=== PATIENT | male | born 1960 | race Caucasian/White ===

== ENCOUNTER 2022-11-28 08:21 | Day surgery (SDC) | payer OTHER ==
[2022-11-28] VITALS (15 sets, daily range): BP systolic 113–135; BP diastolic 66–86
[~2022-11-28] VITALS: Ht 182.9 cm; Wt 96.6 kg
[~2022-11-28 08:21] MED LIST: CELE100 PO; Crestor20 MG PO; MULVITA PO; TADA10TA
--- NOTE | 2022-11-28 09:46 | NUR ---
11/28/22 0946 Benja Lin HISTORY, CHART, MEDICATIONS AND ALLERGIES REVIEWED BEFORE START OF PROCEDURE. PATIENT CONFIRMS NPO STATUS AND AGREES WITH SCHEDULED PROCEDURE. 3-LEAD EKG REVIEWED WITH PHYSICIAN PRIOR TO START OF PROCEDURE. MONITOR INTACT WITH CONTINUOUS PULSE OXIMETRY,CAPNOGRAPHY, 3-LEAD EKG, INTERMITTENT BP. SUPPLEMENTAL O2 TO BE TITRATED THROUGHOUT PROCEDURE TO MAINTAIN O2 SATURATION ABOVE 90%. PATIENT DETERMINED TO BE ASA APPROPRIATE FOR PROPOFOL SEDATION PRIOR TO START OF PROCEDURE BY
--- NOTE | 2022-11-28 10:43 | NUR ---
DISCHARGE NOTE PT A&OX4, VSS, BREATHING RA, DRESSED INDEPENDENTLY WITH RN IN ROOM. PT TOLERATING PO FLUIDS. Discharge instructions reviewed with patient. Patient verbalizes understanding. Copy given to patient to take home. Discharged via wheelchair to private car for ride home.ABDOMEN SOFT AND NON-TENDER.
== END 2022-11-28 10:48 | disposition home or self-care (01) ==
LOC: ORSCMMR 08:21 → ORD 09:30 → ORSCMMR 10:48
PROVIDERS: Internal Medicine Gastroenterology
PROC: 0DBN8ZX Excision of Sigmoid Colon, Via Natural or Artificial Opening Endoscopic, Diagnostic (ICD-10-PCS; principal; 2022-11-28 09:30)
PROC: 0DBM8ZX Excision of Descending Colon, Via Natural or Artificial Opening Endoscopic, Diagnostic (ICD-10-PCS; principal; 2022-11-28 09:30)
PROC: 0DBK8ZX Excision of Ascending Colon, Via Natural or Artificial Opening Endoscopic, Diagnostic (ICD-10-PCS; principal; 2022-11-28 09:30)
DX: Z12.11 Encounter for screening for malignant neoplasm of colon (principal); Z86.010 Personal history of colon polyps; Z80.0 Family history of malignant neoplasm of digestive organs; D12.2 Benign neoplasm of ascending colon; K63.5 Polyp of colon; K57.30 Diverticulosis of large intestine without perforation or abscess without bleeding; N40.0 Benign prostatic hyperplasia without lower urinary tract symptoms; E78.00 Pure hypercholesterolemia, unspecified; Z79.899 Other long term (current) drug therapy
CPT/HCPCS: 88305; J2250; J2704; J7120

== ENCOUNTER 2023-08-14 06:08 | Day surgery (SDC) | payer OTHER ==
[~2023-08-14] VITALS: Ht 182.9 cm; Wt 99.0 kg
[2023-08-14] VITALS (14 sets, daily range): BP systolic 124–162; BP diastolic 71–93
[~2023-08-14 06:08] MED LIST changes: +LOSA25 PO; -TADA10TA; +TADA10TA PO
--- NOTE | 2023-08-14 11:00 | NUR ---
ARRIVAL TO SURGICAL UNIT DROWSY BUT APPROP. PLEASANT. ASSESSMENT CHARTED. DENIES N/V SO SNACKS & FLUIDS GIVEN. IVF INFUSING.
--- NOTE | 2023-08-14 17:59 | NUR ---
SHIFT SUMMARY PT WAS ABLE TO WORK w/ THERAPY, AMBULATED IN HALLWAY, UP IN CHAIR FOR DINNER, & PAIN WELL CONTROLLED. DOES C/O FEELING DROWSY & HAS NAPPED ON & OFF. ANDRAE CARPIO.
[2023-08-15 00:42] VITALS: BP 122/71
[2023-08-15 04:28] VITALS: BP 123/67
[2023-08-15 04:52] LABS: BASOPHILS ABSOLUTE AUTO 0.03 K/mm3 (0.00-0.23); BASOPHILS PERCENT AUTO 0 % (0-2); EOSINOPHILS PERCENT AUTO 2 % (0-6); Hemoglobin 12.6 g/dL (13.5-17.5); IMMATURE GRAN PERCENT AUTO 1 % (0-1); LYMPHOCYTES ABSOLUTE AUTO 1.88 K/mm3 (0.84-5.20); LYMPHOCYTES PERCENT AUTO 9 % (21-46); MONOCYTES ABSOLUTE AUTO 2.93 K/mm3 (0.16-1.47); MONOCYTES PERCENT AUTO 15 % (4-13); Mean Corpuscular HGB 31.6 pg (26.0-34.0); Mean Corpuscular Volume 90 fL (80-100); Mean Platelet Volume 10.4 fL (9.1-12.4); NEUTROPHILS ABSOLUTE AUTO 14.56 K/mm3 (1.96-9.15); NEUTROPHILS PERCENT AUTO 73 % (41-73); Platelet Count 194 K/mm3 (150-400); RDW Coefficient Variation 13.2 % (11.7-14.2); RDW Standard Deviation 43.6 fL (35.1-46.3); Red Blood Cell Count 3.99 M/mm3 (4.30-5.90)
[2023-08-15 05:53] LABS: Magnesium, Blood 1.8 mg/dL (1.6-2.4)
[2023-08-15 05:54] LABS: Bun/Creatinine Ratio 20.2 (12.0-20.0); Calcium, Blood 8.3 mg/dL (8.5-10.1); Creatinine, Blood 0.99 mg/dL (0.60-1.20); Potassium, Blood 4.5 mmol/L (3.5-5.5)
--- NOTE | 2023-08-15 06:39 | NUR ---
POD 1 S/P L FRANCISCO. PT VSS T/O NIGHT. INCISION CDI. PEDAL PULSES AND CAP REFILL WNL, PT DENIED N/T. PAIN MGD W/1 OXYCODONE AND SCHEDULED PAIN MEDS W/REP RELIEF. ABEBE DRAINING YELLOW URINE, STAT LOCK IN PLACE. PT UP OOB W/FWW+SBA, KEON WELL. PLAN TO MOBILIZE W/PT AND DC HOME WHEN CLEARED.
[2023-08-15 07:21] VITALS: BP 123/74
[2023-08-15] MEDS ORDERED: ACET500 PO (09:16)
[2023-08-15] MEDS ORDERED: ASPI81CH PO (09:17)
[2023-08-15] MEDS ORDERED: OXYC5 PO (09:17)
--- NOTE | 2023-08-15 10:45 | NUR ---
WENT TO BRAZING MACHINE OPERATOR HELPER RX & THEN WILL RETURN TO DISCUSS DC INSTRUCTIONS.
--- NOTE | 2023-08-15 12:01 | NUR ---
DISCHARGE PT HAS CLEARED THERAPY. PAIN WELL CONTROLLED. EATING, DRINKING WELL. ABEBE EDUCATION DISCUSSED MULTIPLE TIMES, INCLUDING NOT HAVING STAT LOCK OR ABEBE ON SIDE OF SURGERY. w/ PLAN TO DC ABEBE AT HOME & HAS PLANS IF UNABLE TO VOID. POLAR PACK SENT w/ PT. ESCORTED OUT VIA W/C.
== END 2023-08-15 12:01 | disposition home or self-care (01) ==
LOC: ORSCMMR 06:08 → ORD 07:30 → SURS 10:32 → ORD 10:45 → ORSCMMR 08-15 12:01
PROVIDERS: Orthopaedic Surgery
PROC: 0SRB0JA Replacement of Left Hip Joint with Synthetic Substitute, Uncemented, Open Approach (ICD-10-PCS; principal; 2023-08-14 07:30)
DX: M16.12 Unilateral primary osteoarthritis, left hip (principal); E78.5 Hyperlipidemia, unspecified; I10 Essential (primary) hypertension; Z79.899 Other long term (current) drug therapy
CPT/HCPCS: 36415; 72170; 80048; 83735; 85025; 97110; 97116; 97161; 97530; A9270; C1713; C1776; J0171; J0690; J0735; J1100; J1170; J1885; J2250; J2405; J2704; J2795; J3010; J7120

== ENCOUNTER 2024-10-01 06:01 | Inpatient (IN) | payer OTHER ==
[~2024-10-01] VITALS: Ht 180.3 cm; Wt 108.5 kg
[2024-10-01] VITALS (20 sets, daily range): BP systolic 114–150; BP diastolic 75–99
[~2024-10-01 06:01] MED LIST changes: +ACET325 PO; +ASPI81CH PO; +BENADRYL25 MG PO; +IBUP200 PO; +MAGNESIUM OXID500 MG PO; +MULTI-VITAMIN1 EAC2 PO; +OXYC5 PO; +Vitamin C100 M1 PO; +Vitamin D1000 UNI1 PO
[2024-10-01] MEDS ORDERED: CeFAZolin Sodium 2,000 MG in NS 100 ML IV SCH (06:20)
[2024-10-01] MEDS ORDERED: Lactated Ringer's 1,000 ML IV SCH ×2 (06:20→11:50)
[2024-10-01] MEDS ORDERED: propofoL 20 ML IV ONE (06:56)
[2024-10-01] MEDS ORDERED: FentaNYL Citrate 50 MCG/ML 2 ML Injection ONE ×3 (06:57→12:45)
[2024-10-01] MEDS ORDERED: Rocuronium Bromide 10 MG/ML 5ML Injection IV ONE ×2 (06:57→09:08)
[2024-10-01] MEDS ORDERED: Bupivacaine 0.5% HCl 5 MG/ML 30MLVIAL ONE (06:59)
--- NOTE | 2024-10-01 07:01 | NUR ---
History, Chart, Medications and Allergies reviewed before start of procedure. Patient confirms NPO status and agrees with scheduled surgery.
[2024-10-01] MEDS ORDERED: CeFAZolin Sodium 2,000 MG VIAL ONE (07:05)
--- NOTE | 2024-10-01 07:20 | NUR ---
JASON DIAZ NOTIFIED OF PATIENT'S LAST DOSE OF CIALIS BEING 09/30/24 AT 1730. JASON DIAZ STATED SHE WOULD INFORM DR WOODALL PRE-OP. NO NEW ORDERS.
[2024-10-01] MEDS ORDERED: Lidocaine HCl 4% 5 ML SDA ONE (07:25)
[2024-10-01] MEDS ORDERED: Dexamethasone Sod Phos 10 MG/ML 1ML VIAL ONE (07:33)
[2024-10-01] MEDS ORDERED: Sugammadex Sodium 200 MG/2ML SDV (100 MG/ML) ONE ×2 (07:33)
[2024-10-01] MEDS ORDERED: Ondansetron HCl 2 MG / ML 2ML Vial ONE (07:33)
[2024-10-01] MEDS ORDERED: Ketorolac Tromethamine 30mg Vial ONE (07:33)
--- NOTE | 2024-10-01 09:15 | NUR ---
10/01/24 0915 Gisselle,Mame ERYTHEMA NOTED ON PATIENT'S LOWER ABDOMEN WHERE PATIENT WAS SHAVED PRIOR TO ARRIVAL TO OR.
[2024-10-01] MEDS ORDERED: FLU VACC TS2024-25(6MOS UP)/PF 45 MCG/0.5 ML SYRINGE IM ONE (11:50)
[2024-10-01] MEDS ORDERED: OxyCODONE 5 mg/Acetamin 325 mg TABLET PO PRN (11:50)
[2024-10-01] MEDS ORDERED: HYDROcodone 7.5-APAP 325 TAB PO PRN (11:50)
[2024-10-01] MEDS ORDERED: Ondansetron HCl 2 MG / ML 2ML Vial IV PRN (11:55)
[2024-10-01] MEDS ORDERED: FentaNYL Citrate 50 MCG/ML 2 ML Injection IV PRN (12:45)
--- NOTE | 2024-10-01 14:30 | NUR ---
BLADDER SCAN PERFORMED, 71ML IN BLADDER. PER DR WOODALL, PLACE ABEBE CATH IF PATIENT UNABLE TO VOID POST SURGERY. HX BPH. STUDENT NURSE MAXIMILIANO WITH INSTRUCTOR VIJAYA TO ASSIST TO PLACE 14 FR. ABEBE CATH.
--- NOTE | 2024-10-01 15:06 | NUR ---
Patient up to Ambulate with standby assist. Gait steady. Dressing to procedure site X3 to abdomen clean, dry, intact with no visible drainage, swelling, erythema or bruising noted. Abominal binder in place. Patient States Post-Procedure ride home has been arranged with Rona. Discharged via wheelchair to private car for ride home. Instructed when to remove sanford cath at home per Dr. Johnson's orders.
== END 2024-10-01 15:04 | disposition home or self-care (01) | DRG 355 ==
LOC: ORSCMMR 06:01 → ORD 07:30 → ORSCMMR 07:30 → ORD 08:15 → ORSCMMR 11:48 → SURS 11:48
PROVIDERS: ADMIT Surgery
PROC: 0WUF4JZ Supplement Abdominal Wall with Synthetic Substitute, Percutaneous Endoscopic Approach (ICD-10-PCS; principal; 2024-10-01 07:30)
PROC: 8E0W4CZ Robotic Assisted Procedure of Trunk Region, Percutaneous Endoscopic Approach (ICD-10-PCS; 2024-10-01 07:30)
DX: K43.0 Incisional hernia with obstruction, without gangrene (principal)
CPT/HCPCS: A9270; C1781; J0690; J1100; J1885; J2003; J2405; J2704; J3010; J7120

== ENCOUNTER 2024-11-22 09:16 | Inpatient (IN) | payer OTHER ==
[2024-11-22] VITALS (14 sets, daily range): BP systolic 120–156; BP diastolic 74–97
[~2024-11-22] VITALS: Ht 182.9 cm; Wt 102.1 kg
[~2024-11-22 09:16] MED LIST changes: -Crestor20 MG PO; +Crestor40 MG PO
[2024-11-22 10:59] LABS: BASOPHILS PERCENT AUTO 1 % (0-2); EOSINOPHILS ABSOLUTE AUTO 0.11 K/mm3 (0.00-0.68); EOSINOPHILS PERCENT AUTO 1 % (0-6); Hematocrit 40.7 % (37.0-53.0); Hemoglobin 13.9 g/dL (13.5-17.5); IMMATURE GRAN ABSOLUTE AUTO 0.09 K/mm3 (0.00-0.10); IMMATURE GRAN PERCENT AUTO 1 % (0-1); LYMPHOCYTES ABSOLUTE AUTO 2.15 K/mm3 (0.84-5.20); LYMPHOCYTES PERCENT AUTO 15 % (21-46); MONOCYTES ABSOLUTE AUTO 2.08 K/mm3 (0.16-1.47); MONOCYTES PERCENT AUTO 15 % (4-13); Mean Corpuscular HGB 30.1 pg (26.0-34.0); Mean Corpuscular HGB Conc 34.2 g/dL (31.5-36.5); Mean Corpuscular Volume 88 fL (80-100); Mean Platelet Volume 10.1 fL (9.1-12.4); NEUTROPHILS ABSOLUTE AUTO 9.42 K/mm3 (1.96-9.15); NEUTROPHILS PERCENT AUTO 68 % (41-73); Platelet Count 227 K/mm3 (150-400); RDW Coefficient Variation 13.2 % (11.7-14.2); RDW Standard Deviation 42.9 fL (35.1-46.3); Red Blood Cell Count 4.62 M/mm3 (4.30-5.90); White Blood Cell Count 13.95 K/mm3 (4.00-11.30)
[2024-11-22 11:27] LABS: Albumin, Blood 3.4 g/dL (3.4-5.0); Albumin/Globulin Ratio 0.8 (0.8-1.8); Bilirubin, Total 1.7 mg/dL (0.1-1.0); Bun/Creatinine Ratio 19.3 (12.0-20.0); Calcium, Blood 9.3 mg/dL (8.5-10.1); Creatinine, Blood 0.93 mg/dL (0.60-1.20); Globulin, Blood 4.5 g/dL (2.2-4.0); Potassium, Blood 4.4 mmol/L (3.5-5.5); Total Protein, Blood 7.9 g/dL (6.4-8.2)
[2024-11-22] MEDS ORDERED: Heparin Sodium 5000 Units/ML 1ML MDV IV ONE ×2 (13:55→14:20)
[2024-11-22] MEDS ORDERED: [UNRECOGNIZED DRUG - MIXTURE] IV SCH (14:00)
[2024-11-22] MEDS ORDERED: Dose Adjust by Pharmacy XX STA ×2 (14:08→14:19)
[2024-11-22] MEDS ORDERED: Prochlorperazine Edisylate 10 mg Vial IV PRN (14:20)
[2024-11-22] MEDS ORDERED: HYDROcodone 5-APAP 325 TAB PO PRN (14:20)
[2024-11-22] MEDS ORDERED: Heparin Sodium,Porcine/0.5 NS 500 ML IV SCH (14:20)
[2024-11-22 14:32] LABS: Anti-Xa UFH, PHA Monitoring <0.10 IU/mL; International Normalized Ratio 1.03
[2024-11-22] MEDS ORDERED: Midazolam HCl 1MG / ML 2ML Vial ONE (15:16)
[2024-11-22] MEDS ORDERED: FentaNYL Citrate 50 MCG/ML 2 ML Injection ONE (15:16)
[2024-11-22] MEDS ORDERED: NS 1,000 ML IV ONE ×2 (15:17→15:19)
[2024-11-22] MEDS ORDERED: Heparin Sodium 1000 Units/ML 10ML MDV ONE (15:19)
--- NOTE | 2024-11-22 18:37 | NUR ---
Admit/ End of shift note. Pt admitted from the ED via the laborer stores after IVC filter placed. Pt has access site to right groin. Pt has needed 1L NC post procedure, which his reports is normal after receiving meds. Pt has sats have been 88% on RA, will try to wean off supplemental O2 when able. Good PO intake this shift. Pt OOB this evening to use the urinal. Very minimal oozing to the groin site. Hep gtt continues to infuse. Pt is able to make needs known, call light is within reach.
[2024-11-23 03:33] LABS: Hematocrit 36.8 % (37.0-53.0); Hemoglobin 12.4 g/dL (13.5-17.5); Mean Corpuscular HGB 29.9 pg (26.0-34.0); Mean Corpuscular HGB Conc 33.7 g/dL (31.5-36.5); Mean Corpuscular Volume 89 fL (80-100); Mean Platelet Volume 9.9 fL (9.1-12.4); Platelet Count 233 K/mm3 (150-400); RDW Coefficient Variation 13.2 % (11.7-14.2); RDW Standard Deviation 43.2 fL (35.1-46.3); Red Blood Cell Count 4.15 M/mm3 (4.30-5.90); White Blood Cell Count 13.31 K/mm3 (4.00-11.30)
[2024-11-23 04:03] LABS: Albumin, Blood 2.9 g/dL (3.4-5.0); Anion Gap 9 mmol/L (3-11); Blood Urea Nitrogen 16 mg/dL (8-24); Bun/Creatinine Ratio 17.9 (12.0-20.0); CO2, Blood 24 mmol/L (21-32); Calcium, Blood 8.8 mg/dL (8.5-10.1); Chloride, Blood 103 mmol/L (98-108); Creatinine, Blood 0.89 mg/dL (0.60-1.20); Glomerular Filtration Rate 96 (60-); Glucose, Blood 107 mg/dL (70-99); Phosphorus, Blood 3.8 mg/dL (2.5-4.9); Potassium, Blood 4.3 mmol/L (3.5-5.5); Sodium, Blood 132 mmol/L (136-145)
[2024-11-23 04:11] VITALS: BP 144/84
[2024-11-23] MEDS ORDERED: Dose Adjust by Pharmacy XX STA (04:12)
--- NOTE | 2024-11-23 06:04 | NUR ---
SHIFT SUMMARY PT A&OX4, CALM, COOPERATIVE TO CARE. HR IN THE 80'S, SR HE DENIES ANY CP/PRESSURE, NUMB/TINGLING, SBP STABLE. PT ON 2L VIA NC, O2 AT 93%. PER PTS SPOUSE AFTER HIS LAST SURGERY HE REQUIRED OXYGEN TO MAINTAIN HIS O2 ABOVE 88%. TRIED TO TITRATE PT DOWN SLOWLY, HAD HIM ON RA FOR APPROX AN HOUR AND HE DESATED TO THE MID 80'S. HE HAS SOME SOB, WORSE WITH EXERTION. HE HAS SOME PAIN IN THE RIGHT LEG, MEDICATING PER EMAR. PT HAD IVC FILTER PLACED 11/22, RIGHT GROIN SITE. TEGADERM IN PLACE, SMALL AMOUNT OF BLOOD NOTED, UNHANGED FROM START OF SHIFT, MD AWARE. HEPARIN GTT INFUSING PER EMAR. PT RESTING IN BED AT THIS TIME. CALL LIGHT IN REACH. WILL MONITOR PT AND REPORT TO ONCOMING RN.
[2024-11-23 07:55] VITALS: BP 137/88
[2024-11-23] MEDS ORDERED: Apixaban 5 MG Tab PO SCH (09:00)
[2024-11-23] MEDS ORDERED: tadalafiL 5 MG Tab PO SCH (12:00)
[2024-11-23] MEDS ORDERED: Losartan Potassium 25 MG Tab PO SCH (12:00)
--- NOTE | 2024-11-23 15:30 | NUR ---
UPDATE ROUNDING ON PT, PT SATS NOTED TO BE IN THE LOW 90'S ON RA WHILE PT WAS AWAKE. PT REQUESTEED TO HAVE DOOR CLOSED SO THAT HE COULD TRY TO SLEEP. PT SET OFF O2 SAT ALARM MULTIPLE TIMES WHILE SLEEPING AND ON RA. PT SATS QUICKLY RETURNED TO 90'S WHEN PT WOULD AWAKEN FROM THE ALARM. 1 L NC APPLIED FOR WHILE PT SLEEPS, SATS REMAINING IN THE 90'S.
[2024-11-23 16:40] VITALS: BP 119/75
--- NOTE | 2024-11-23 18:04 | NUR ---
SHIFT SUMMARY PT A/OX4 AND COOPERATIVE OF CARE. PT ABLE TO EXPRESS NEEDS AND CALLED APPROPIATE. PT INDEPENDENT IN BED AND AND ROOM, TOLERATED WELL. PT O2 SATS STABLE IN THE 90'S ON RA WHEN AWAKE, PT WOULD HAVE DESAT WHILE SLEEPING BUT WOULD QUICKLY RETURN TO THE 90'S ONCE AWAKE. OTHER VSS THROUGHOUT SHIFT. NO REPORT OF CHEST PAIN/PRESSURE THROUGHOUT SHIFT. PT ONLY REPORTED SLIGHT SOB WITH AMBULATION. PT STARTED ON PO ANTI-COAGS PER ORDERS.
[2024-11-23 19:38] VITALS: BP 120/80
[2024-11-23 23:50] VITALS: BP 128/78
[2024-11-24 02:35] VITALS: BP 120/83
--- NOTE | 2024-11-24 02:48 | NUR ---
*LATE ENTRY* TRANSFER OF CARE PT A&O X4, CALM, COOPERATIVE TO CARE. HR IN THE 80'S, SR, DENIES CP/PRESSURE, NUMB/TINGLING, SBP STABLE. O2 >90% ON RA-2L. PT ON RA WHILE AWAKE, DESATS WITH SLEEP SO 1-2L PLACED WITH SLEEP. HE HAS SOME PAIN OF THE RIGHT LEG, MEDICATING PER EMAR. RIGHT GROIN SITE FROM IVC FILTER PLACEMENT. TEGADERM IN PLACE SMALL BLOOD NOTED UNDER TEGADERM, UNCHANGED FROM START OF SHIFT. PT AMBULATINNG WELL. BED AVAILABLE ON MEDICAL FLOOR. REPORT GIVEN TO MED FLOOR NURSE. PT TRANSFERED TO MEDICAL FLOOR VIA BED WITH THIS RN.
--- NOTE | 2024-11-24 03:00 | NUR ---
TRANSFER NOTE PT WAS TRANSFERRED TO MEDICAL FLOOR RM#[id number] @[phone]. PT BROUGHT ALL HIS BELONINGS WITH HIM. SWITCHED BEDS WITH PCU, PT REMAINED IN BED. O2 @1.5L VIA NASAL CANNULA, SAT'S LOW 90'S. PT REPORTS PAIN TO HIS RIGHT LE, WILL MEDICATE PER EMAR. PT REPORTS EFFECTIVE. PLAN IS TO DISCHARGE HOME TODAY DEPENDING ON O2 NEEDS. BED AT THE LOWEST POSITION, CALL LIGHT W/I REACH. EDUCATED INDUSTRIAL PIPEFITTER JOURNEYMAN LIGHT AND FALL PRECAUTIONS. PT IS SBA. URINAL BY THE BEDSIDE. PT IS A/O X4, ABLE TO MAKE HIS NEEDS KNOWN AND COOPERATIVE WITH CARE.
[2024-11-24 07:50] VITALS: BP 157/83
[2024-11-24 15:10] VITALS: BP 117/70
--- NOTE | 2024-11-24 16:54 | NUR ---
SHIFT SUMMARY NO ACUTE CHANGES - A/Ox4, USES CALL LIGHT APPROPRIATELY, ABLE TO MAKE NEEDS KNOWN. TELE DC'D. HOME O2 EVAL COMPLETED - RT RECOMMENDED OXIMETRY SLEEP STUDY TO BE COMPLETED, ORDERS RECIEVED FROM PROVIDER AND ENTERED BY THIS RN. PK DOWN T/O SHIFT. TREATED FOR RLE PAIN PER EMAR. APPETITE POOR - OFFERING SNACKS T/O SHIFT. PT REMAINS ON 2 L/MIN VIA NC FOR SOB WITH EXERTION AND TALKING AND SATS DROPPING 84-86% WITH ACTIVITY AND WHEN SLEEPING. PT CURRENTLY RESTING IN HOSPITAL BED WITH BED IN LOWEST POSITION AND CALL LIGHT WITHIN REACH.
[2024-11-24 19:57] VITALS: BP 117/77
--- NOTE | 2024-11-25 03:40 | NUR ---
SHIFT SUMMARY PATIENT HAS BEEN SLEEPING INTERMITTANTLY TONIGHT. HE HAS BEEN MEDICATED FOR PAIN X2 ON THIS SHIFT. PULSE OXIMETRY STUDY IS BEING CONDUCTED. AT ABOUT 0040, PATIENT STATED HE FELT SOB AND WAS REQUESTING SOME SUPPLEMENTAL 02. HIS 02 LEVEL WAS 89%. NASAL CANNULA WAS TURNED UP TO 1 LITER AND PATIENT FELT BETTER. 02 LEVEL WENT UP TO 93%. PATIENT IS ORIENTED X4. HE HAS HIS CALL LIGHT WITHIN REACH. SAFETY PRECAUTIONS ARE BEING MAINTAINED.
[2024-11-25 04:40] VITALS: BP 123/75
[2024-11-25 07:23] VITALS: BP 123/75
[2024-11-25] MEDS ORDERED: Norco 5-325 Ta1 EACH PO (14:32)
[2024-11-25] MEDS ORDERED: ELIQUIS5 M2 PO (14:33)
[2024-11-30] MEDS ORDERED: Apixaban 5 MG Tab PO SCH (09:00)
== END 2024-11-25 15:53 | disposition home or self-care (01) | DRG 299 ==
LOC: ER 09:16 → PCU 14:16 → ERHOLD 14:16 → PCU 16:01 → MEDS 11-24 02:36
PROVIDERS: Student in an Organized Health Care Education/Training Program; ADMIT Internal Medicine
PROC: 06H03DZ Insertion of Intraluminal Device into Inferior Vena Cava, Percutaneous Approach (ICD-10-PCS; principal; 2024-11-22)
DX: I82.411 Acute embolism and thrombosis of right femoral vein (principal); I26.99 Other pulmonary embolism without acute cor pulmonale; J96.01 Acute respiratory failure with hypoxia; I82.431 Acute embolism and thrombosis of right popliteal vein; I82.441 Acute embolism and thrombosis of right tibial vein; I82.461 Acute embolism and thrombosis of right calf muscular vein; I82.451 Acute embolism and thrombosis of right peroneal vein; N40.0 Benign prostatic hyperplasia without lower urinary tract symptoms; E78.00 Pure hypercholesterolemia, unspecified; Z79.899 Other long term (current) drug therapy; I10 Essential (primary) hypertension; Z85.820 Personal history of malignant melanoma of skin; Z88.5 Allergy status to narcotic agent
CPT/HCPCS: 36415; 71046; 71260; 76937; 80053; 80069; 83735; 83880; 84484; 85025; 85027; 85520; 85610; 85730; 93005; 93010; 93971; 94761; 94762; 99152; 99153; 99285-25; A9270; C1769; C1880; J0780; J1644; J2250; J3010; J7030; Q9967

== ENCOUNTER 2025-03-06 11:10 | Day surgery (SDC) | payer OTHER ==
[~2025-03-06] VITALS: Ht 182.9 cm; Wt 117.0 kg
[2025-03-06] VITALS (7 sets, daily range): BP systolic 113–130; BP diastolic 79–99
[~2025-03-06 11:10] MED LIST changes: +ELIQUIS5 M2 PO; +FERSU300 PO; +Norco 5-325 Ta1 EACH PO
[2025-03-06] MEDS ORDERED: Heparin Sodium 1000 Units/ML 10ML MDV ONE (13:25)
[2025-03-06] MEDS ORDERED: NS 1,000 ML IV ONE (13:26)
[2025-03-06] MEDS ORDERED: Midazolam HCl 1MG / ML 2ML Vial ONE (13:59)
[2025-03-06] MEDS ORDERED: NS 500 ML IV ONE (13:59)
[2025-03-06] MEDS ORDERED: FentaNYL Citrate 50 MCG/ML 2 ML Injection ONE (13:59)
--- NOTE | 2025-03-06 15:04 | NUR ---
PATIENT TO RECOVERY ROOM AT 1437 S/P IVC FILTER REMOVAL. PATIENT AWAKE AND ALERT, DENIES C/O PAIN. RIGHT IJ SITE REVIEWED. OCCLUSIVE DRSG INTACT, AREA SOFT W/O HEMATOMA, OR ACTIVE BLEEDING. SCANT AMT OF BLOOD LESS THAN 0.5CM UNDER DRSG. PT TOLERATING FOOD/FLUIDS. VSS.
--- NOTE | 2025-03-06 17:21 | NUR ---
PT OOB TO DRESS, KEON WELL. VSS. IV DC'D INTACT. NO CHANGE TO RIGHT IJ SITE. PATIENT DID C/O PAIN 5/10, STATED IT WAS AN ACHE. AREA WITH MINIMAL SWELLING. TYLENOL GIVEN PER DR LEARY. ICE PLACED FOR COMFORT. PATIENT STATED ABOUT 40 MIN AFTER TYLENOL THAT PAIN WAS IMPROVED. PATIENT DC'D HOME IN CARE OF PT'S BROTHER AT 1440. HE WAS DISCHARGED IN STABLE CONDITION AND ESCORTED OUT VIA WHEELCHAIR. VERBAL AND WRITTEN DISCHARGE INFORMATION WAS GIVEN TO PT AND PT'S BROTHER WITH CLEAR UNDERSTANDING. THERE WAS A QUESTION REGARDING CLARIFICATION OF ELIQUIS. I INSTRUCTED PATIENT THAT I WOULD CALL HIM AT HOME WITH UPDATE AFTER I SPOKE WITH DR LEARY. PER DR LEARY PT TO CONTINUE ELIQUIS FOR AN ADDITIONAL THREE MONTHS. PATIENT NOTIFIED. ELIQUIS 5MG BID WITH 3 MONTH SUPPLY CALLED INTO [facility] TO AT 1720, I SPOKE WITH A PHARMACIST NAMED DIANNE.
== END 2025-03-06 23:00 | disposition home or self-care (01) ==
LOC: MHTC 11:10
DX: Z45.89 Encounter for adjustment and management of other implanted devices (principal); E78.5 Hyperlipidemia, unspecified; I10 Essential (primary) hypertension; Z86.711 Personal history of pulmonary embolism; Z86.718 Personal history of other venous thrombosis and embolism; Z79.01 Long term (current) use of anticoagulants; Z79.899 Other long term (current) drug therapy; Z88.5 Allergy status to narcotic agent; Z96.642 Presence of left artificial hip joint
CPT/HCPCS: 37193; 76937; 99152; A9270; C1769; C1773; C1894; J1644; J2250; J3010; J7030; J7040; Q9967